=== PATIENT | female | born 1990 | race Caucasian/White ===

== ENCOUNTER 2018-11-24 17:56 | Emergency (ER) | payer MEDICAID ==
[~2018-11-24] VITALS: Ht 177.8 cm; Wt 74.5 kg
[~2018-11-24 17:56] MED LIST: HYDROCODON-ACE1 EAC7 PO; IBUPROFEN600 MG PO
[2018-11-24 18:04] VITALS: Ht 177.8 cm; Wt 74.5 kg
[2018-11-24] MEDS ORDERED: ADVIL200 MG PO (18:06)
[2018-11-24 18:42] LABS: BASOPHILS 0.2 % (0-2); EOSINOPHILS 0 % (0-7); HEMATOCRIT 41.7 % (36.0-48.0); HEMOGLOBIN 14.7 g/dL (12-16); IMMATURE GRANULOCYTES 0.2 % (0-5); MCH 31.3 pg (26.0-34.0); MCHC 35.3 g/dL (31.0-37.0); MCV 88.7 fL (80.0-100.0); MEAN PLATELET VOLUME 10.8 fL (7.4-10.4); MONOCYTES 13.2 % (2-11); NEUTROPHILS 67.4 % (40-80); RDW 11.9 % (11.5-14.5); WBC 10.1 10x3/uL (4.8-10.8)
[2018-11-24 18:43] LABS: PLATELET COUNT 160 10x3/uL (130-400)
[2018-11-24 18:58] LABS: ALBUMIN 4.3 g/dL (3.4-5.0); ALKALINE PHOSPHATASE 74 U/L (46-116); ALT (SGPT) 21 U/L (10-68); BILIRUBIN - TOTAL 0.77 mg/dL (0.2-1.3); CALC OSMOLALITY 276 mosm/kg (275-300); CALCIUM 9.9 mg/dL (8.5-10.1); CARBON DIOXIDE 22.8 mmol/L (21.0-32.0); CHLORIDE - SERUM 104 mmol/L (98-107); GLUCOSE 92 mg/dL (74-106); POTASSIUM - SERUM 3.5 mmol/L (3.5-5.1); PROTEIN - SERUM 8.3 g/dL (6.4-8.2); SODIUM 140 mmol/L (136-145); UREA NITROGEN 7 mg/dL (7-18); eGFR NON AFRICAN AMERICAN 70 mL/min (90-120)
[2018-11-24 19:02] LABS: AMYLASE - SERUM 34 U/L (25-115); LIPASE 91 U/L (73-393)
[2018-11-24 19:06] LABS: TROPONIN-I < 0.017 ng/mL (0.000-0.060)
[2018-11-24 19:21] LABS: APPEARANCE CLEAR (CLEAR); COLOR YELLOW (YELLOW)
[2018-11-24 19:22] LABS: BACTERIA MANY /hpf (NONE SEEN); BILIRUBIN NEGATIVE (NEGATIVE); EPITHELIAL CELLS OCC /hpf (0-5); GLUCOSE NEGATIVE (NEGATIVE); HCG URINE NEGATIVE (NEGATIVE); KETONE MODERATE mg/dL (NEGATIVE); NITRITE POSITIVE (NEGATIVE); PROTEIN NEGATIVE (NEGATIVE); RED CELLS - URINE 0-5 /hpf (0-5); SPECIFIC GRAVITY 1.005 (1.005-1.020); UROBILINOGEN NORMAL (NORMAL); WHITE CELLS - URINE 0-5 /hpf (0-5)
[2018-11-24] MEDS ORDERED: TORADOL10 MG PO (21:15)
[2018-11-24] MEDS ORDERED: ZOFRAN8 MG PO (21:16)
[2018-11-24] MEDS ORDERED: LEVAQUIN750 MG PO (21:16)
[2018-11-24 21:55] VITALS: BP 104/53
== END 2018-11-24 21:55 | disposition home or self-care (01) ==
LOC: D.ER 17:56
PROVIDERS: Family Medicine
DX: R10.9 Unspecified abdominal pain (principal); R52 Pain, unspecified

== ENCOUNTER 2019-10-30 20:18 | Emergency (ER) | payer SELFPAY ==
[~2019-10-30] VITALS: Ht 177.8 cm; Wt 66.2 kg
[~2019-10-30 20:18] MED LIST changes: +ADVIL200 MG PO; +LEVAQUIN750 MG PO; +TORADOL10 MG PO; +ZOFRAN8 MG PO
[2019-10-30 20:24] VITALS: Ht 177.8 cm; Wt 66.2 kg
[2019-10-30 21:32] LABS: BASOPHILS 0.3 % (0-2); EOSINOPHILS 0.3 % (0-7); HEMATOCRIT 43.5 % (36.0-48.0); HEMOGLOBIN 14.8 g/dL (12-16); IMMATURE GRANULOCYTES 0.6 % (0-5); LYMPHOCYTES 16.3 % (15-50); MCH 31.3 pg (26.0-34.0); MEAN PLATELET VOLUME 10.5 fL (7.4-10.4); MONOCYTES 8.4 % (2-11); NEUTROPHILS 74.1 % (40-80); RBC 4.73 10x6/uL (4.00-5.40); RDW 12.8 % (11.5-14.5); WBC 13.8 10x3/uL (4.8-10.8)
[2019-10-30 21:33] LABS: PLATELET COUNT 256 10x3/uL (130-400)
[2019-10-30 21:35] LABS: CALC OSMOLALITY 278 mosm/kg (275-300); CALCIUM 9.7 mg/dL (8.5-10.1); CARBON DIOXIDE 24.5 mmol/L (21.0-32.0); CHLORIDE - SERUM 105 mmol/L (98-107); GLUCOSE 78 mg/dL (74-106); POTASSIUM - SERUM 3.9 mmol/L (3.5-5.1); SODIUM 141 mmol/L (136-145); UREA NITROGEN 11 mg/dL (7-18); eGFR NON AFRICAN AMERICAN 69 mL/min (90-120)
[2019-10-30 21:51] LABS: BILIRUBIN NEGATIVE (NEGATIVE); GLUCOSE NEGATIVE (NEGATIVE); KETONE NEGATIVE (NEGATIVE); NITRITE NEGATIVE (NEGATIVE); UROBILINOGEN NORMAL (NORMAL)
[2019-10-30 22:04] LABS: ALBUMIN 4.2 g/dL (3.4-5.0); ALKALINE PHOSPHATASE 78 U/L (30-120); ALT (SGPT) 26 U/L (10-68); CREATINE KINASE 577 UL (21-215); LIPASE 101 U/L (73-393); PROTEIN - SERUM 7.9 g/dL (6.4-8.2)
[2019-10-30 22:05] LABS: CKMB 14.9 U/L (0.0-3.6)
[2019-10-30 22:50] VITALS: BP 118/72
[2019-10-31 00:28] LABS: HCG URINE NEGATIVE (NEGATIVE)
== END 2019-10-30 23:58 | disposition short-term general hospital (02) ==
LOC: D.ER 20:18
PROVIDERS: Family Medicine
DX: S22.20XA Unspecified fracture of sternum, initial encounter for closed fracture (principal); S22.009A Unspecified fracture of unspecified thoracic vertebra, initial encounter for closed fracture; W17.81XA Fall down embankment (hill), initial encounter; Y93.9 Activity, unspecified; Y92.9 Unspecified place or not applicable; M54.2 Cervicalgia; M54.9 Dorsalgia, unspecified; R06.02 Shortness of breath